=== PATIENT | female | born 1990 | race Caucasian/White ===

== ENCOUNTER → 2017-06-22 10:41 | Outpatient (CLI) | payer OTHER, MEDICAID, SELFPAY ==
[2017-06-22 12:28] LABS: Hematocrit 36.1 % (37-47); Hemoglobin 11.9 g/dl (12.0-15.0); Mean Corpuscular Hgb 28.5 pg (27.0-32.0); Mean Corpuscular Volume 86.4 fL (81-99); Mean Platelet Vol. 11.1 fl (6.2-12.0); Platelet Count 207 K/mm3 (150-450); RBC Distribution Width CV 13.1 % (11.6-14.6); RBC Distribution Width SD 40.3 fl (35.1-43.9); Red Blood Count 4.18 M/mm3 (4.2-5.4); White Blood Count 11.1 K/mm3 (4.4-11.0)
[2017-06-22 12:34] LABS: Scan Indicated on CBC? Y/N NO
[2017-06-22 13:22] LABS: Glucose Challenge Gest 1H 50g 117 mg/dL (70-140)
== END ==
PROVIDERS: Visit Provider Obstetrics & Gynecology
DX: Z34.82 Encounter for supervision of other normal pregnancy, second trimester (principal)
CPT/HCPCS: 36415; 82950; 85027

== ENCOUNTER → 2017-08-24 09:59 | Outpatient (CLI) | payer OTHER, MEDICAID, SELFPAY ==
[2017-08-24 11:34] LABS: Group B Strep DNA By PCR Negative (Negative); Internal Control PASS; Probe Check PASS; Specimen Processing Control PASS
== END ==
PROVIDERS: Visit Provider Obstetrics & Gynecology
DX: Z36.85 Encounter for antenatal screening for Streptococcus B (principal)
CPT/HCPCS: 87081; 87653

== ENCOUNTER 2017-09-14 04:50 | Inpatient (IN) | payer OTHER, MEDICAID, SELFPAY ==
[2017-09-14 05:46] VITALS: BMI 34.1
[2017-09-14 06:28] LABS: Hematocrit 36.9 % (37-47); Hemoglobin 11.7 g/dl (12.0-15.0); Mean Corp Hgb Conc 31.7 g/gl (32-36); Mean Corpuscular Hgb 25.8 pg (27.0-32.0); Mean Corpuscular Volume 81.5 fL (81-99); Mean Platelet Vol. 10.5 fl (6.2-12.0); Platelet Count 205 K/mm3 (150-450); RBC Distribution Width CV 15.2 % (11.6-14.6); RBC Distribution Width SD 44.2 fl (35.1-43.9); Red Blood Count 4.53 M/mm3 (4.2-5.4); White Blood Count 10.1 K/mm3 (4.4-11.0)
[2017-09-14] MEDS: Lactated Ringers 1,000 ML 50 ML IV ×2 (06:30)
[2017-09-14 06:36] LABS: Scan Indicated on CBC? Y/N NO
[2017-09-14] MEDS: Acetaminophen 325 MG Tablet PO (10:54)
[2017-09-14] MEDS: Oxytocin 30 units/NS 500 ml 30 UNITS/500 ML IV.SOLN 334 UNITS IV (12:23)
--- NOTE | 2017-09-14 12:44 | PCM.OB.VAG ---
Vaginal Delivery Maternal Presentation: Active Labor 39w3d ega in active labor Amniotic Membrane Rupture Type: Artificial Rupture of Membrane time: 0800 Amniotic Fluid Description: Clear Final TEMO: 09/18/17 Final TEMO Source: US <20 weeks Gestational age: 39 Weeks and 3 Days Date of Procedure: 09/14/17 Pre-Operative Diagnosis: labor Post-Operative Diagnosis: same Surgery/ Procedure Performed: Spontaneous Vaginal Delivery Anesthesiologist: Deshaun Munoz Type of Anesthesia: Epidural Description of Procedure: Progressed to 7 cm then small amount of pitocin augmentation given. The progressed to FD then pushed for short time to deliver a live male without complication. Delayed cord clamping was employed. The nose and mouth was suctioned. The cord was clamped and cut. There was an active cry within the first minute of life. Apgars were 9/9. The placenta delivered spontaneously intact with a centrally located 3VC. The upper vagina and cervix were intact. Small first degree peruurethral tears were repaired with 3-0 vicryl suture. A small posterior vaginal first degree tear was repaired with 2-0 vicryl. The uterus contracted well. Presentation: Vertex Placental Delivery Description: Spontaneous Placenta Disposition: [facility] Percentage of Placenta Abruption: 0 Cord Vessel Description: 3 Vessels Cord Entanglement: None Drain: Marina to straight drain Estimated Blood Loss: 300cc Infant A gender: Male (1 minute): 9 (5 minute): 9 Episiotomy Description: None Laceration: Perineal Extension/lac, Vaginal Extension/lac, 1st degree Medications given after delivery: IV Pitocin Complications: None
--- NOTE | 2017-09-14 12:49 | OP.PCM_ITS ---
Vaginal Delivery Maternal Presentation: Active Labor 39w3d ega in active labor Amniotic Membrane Rupture Type: Artificial Rupture of Membrane time: 0800 Amniotic Fluid Description: Clear Final TEMO: 09/18/17 Final TEMO Source: US <20 weeks Gestational age: 39 Weeks and 3 Days Date of Procedure: 09/14/17 Pre-Operative Diagnosis: labor Post-Operative Diagnosis: same Surgery/ Procedure Performed: Spontaneous Vaginal Delivery Anesthesiologist: Deshaun Munoz Type of Anesthesia: Epidural Description of Procedure: Progressed to 7 cm then small amount of pitocin augmentation given. The progressed to FD then pushed for short time to deliver a live male without complication. Delayed cord clamping was employed. The nose and mouth was suctioned. The cord was clamped and cut. There was an active cry within the first minute of life. Apgars were 9/9. The placenta delivered spontaneously intact with a centrally located 3VC. The upper vagina and cervix were intact. Small first degree peruurethral tears were repaired with 3-0 vicryl suture. A small posterior vaginal first degree tear was repaired with 2- 0 vicryl. The uterus contracted well. Presentation: Vertex Placental Delivery Description: Spontaneous Placenta Disposition: [facility] Percentage of Placenta Abruption: 0 Cord Vessel Description: 3 Vessels Cord Entanglement: None Drain: Marina to straight drain Estimated Blood Loss: 300cc A gender: Male (1 minute): 9 (5 minute): 9 Episiotomy Description: None Laceration: Perineal Extension/lac, Vaginal Extension/lac, 1st degree Medications given after delivery: IV Pitocin Complications: None
--- NOTE | 2017-09-14 12:51 | DCINST_ITS ---
Discharge Diet: No Restrictions Discharge Activity: Return to Normal Activity, May Drive, May Shower Return to work on:: 11/13/17 May shower in (days): 0 May resume sexual activity in: 4-6 weeks Call your doctor if your incision/area has: Sudden Increased Bleeding, Increased Pain/ Swelling, Foul Smelling Discharge Call your doctor if you observe: Fever of 101 or Higher, Inability to urinate, Inability to have a bowel movement, Using more than one pad per hour, Shortness of breath, Chest pain, Calf discomfort, Uncontrolled pain Cleanse incision/area with: Soap & Water Additional Instructions: If you experience any of the following, contact your healthcare provider. * Bleeding that soaks a pad every hour for 2 hours * Fever 100.4 or higher * Unrelieved incision or abdominal pain * Swelling, redness, discharge or bleeding from your incision or episiotomy site * Your incision begins to separate * Problems urinating (including inability to urinate or burning while urinating) . * Visual changes * Severe headache * Flu-like symptoms * Pain or redness in one of both of your breasts * Pain, warmth, tenderness or swelling in your legs, especially the calf area * Frequent nausea and vomiting * Symptoms of depression or anxiety If you experience any of the following, call 911 or go to the nearest Emergency Room. * Chest pain * Problems breathing * Seizure activity * Partial or complete paralysis of a body part, slurred speech, weakness or drooping of the face, or a sudden inability to walk or hold your balance Allergies/Adverse Reactions: Allergies No Known Allergies Allergy (Verified 09/14/17 05:47) Medications to take at Discharge Ibuprofen [Motrin] 800 mg PO TID PRN PRN #30 tab 09/14/17 Pnv No.100/Iron/FA/Dha/Epa [Theranatal One Softgel] 1 each PO DAILY PRN PRN 07/30 The following prescriptions were given: Ibuprofen [Motrin] 800 mg PO TID PRN PRN #30 tab PRN Reason: pain or cramping Please Follow Up With: Rachell Pittman MD When: 6 weeks Proposed Discharge Date: 09/16/17
[2017-09-14] MEDS: Oxytocin 30 units/NS 500 ml 30 UNITS/500 ML IV.SOLN 167 UNITS IV (12:54)
[2017-09-14 14:10] VITALS: BP 126/83; PULSE 101; RESP 18; TEMP 36.4; O2SAT 98
[2017-09-14 16:30] VITALS: BP 134/73; PULSE 96; RESP 18; TEMP 36.4
[2017-09-14] MEDS: Ibuprofen 600 MG Tablet PO (19:17)
[2017-09-14 20:10] VITALS: BP 145/79; PULSE 90; RESP 18; TEMP 36.3
[2017-09-14 23:53] VITALS: BP 135/75; PULSE 89; RESP 17; TEMP 36.4
[2017-09-15 03:25] VITALS: BP 134/82; PULSE 89; RESP 18; TEMP 36.6
[2017-09-15 07:06] LABS: Hemoglobin 10.6 g/dl (12.0-15.0); Mean Corp Hgb Conc 32.1 g/gl (32-36); Mean Corpuscular Hgb 26.7 pg (27.0-32.0); Mean Corpuscular Volume 83.1 fL (81-99); Mean Platelet Vol. 10.8 fl (6.2-12.0); Platelet Count 182 K/mm3 (150-450); RBC Distribution Width CV 15.1 % (11.6-14.6); RBC Distribution Width SD 45.1 fl (35.1-43.9); Red Blood Count 3.97 M/mm3 (4.2-5.4); White Blood Count 10.4 K/mm3 (4.4-11.0)
[2017-09-15 07:15] LABS: Scan Indicated on CBC? Y/N NO
--- NOTE | 2017-09-15 08:22 | PCM.PN.OB ---
Subjective: No specific complaints. Bleeding light. Breast feeding. Objective: Afeb VSS - Physical Exam General: Alert, Oriented x3, Cooperative, No apparent distress Lungs: Clear to auscultation, Normal air movement Cardiovascular: Regular rate, Regular Rhythm Abdomen: Soft, Non Tender, Non-Distended, - - Fundus firm nontender Skin: No rashes Neurological: Neuro grossly intact Psych/Mental Status: Normal Affect Comment: Lochia light Vital Signs Temp Pulse Resp BP Pulse Ox 97.8 F 89 18 134/82 H 98 09/15/17 03:25 09/15/17 03:25 09/15/17 03:25 09/15/17 03:25 09/14/17 14:10 Oxygen Delivery Method Room Air Weight: 217 lb 13.067 oz Body Mass Index (BMI) 34.1 Intake and Output for Last 24 Hours 09/13/17 09/14/17 09/15/17 23:59 23:59 23:59 Intake Total 3626 / 3626 Output Total 2100 / 2100 Balance 1526 / 1526 Laboratory Tests Past 24 Hrs 09/15/17 06:55 WBC 10.4 RBC 3.97 L Hgb 10.6 L Hct 33.0 L MCV 83.1 MCH 26.7 L MCHC 32.1 RDW 15.1 H RDW Differential 45.1 H Plt Count 182 MPV 10.8 Medical Necessity - Tobacco Use Smoking Status: Current some day smoker Assessment/Plan Doing well on PP day#1. Cleared for discharge if she desires and baby cleared. Home going instructions and warnings given.
--- NOTE | 2017-09-15 08:24 | PCM.DC.SUM ---
Discharge Date and Diagnosis Date of Admission: 09/14/17 Date of Discharge: 09/15/17 - Primary Discharge Diagnosis S/P Hospital Course and Treatment Consultations 09/14/17 05:47 Consult: Anesthesia Routine Comment: Reason For Exam: LABOR Operations: None Procedures: - - , epidural Summary of Care Provided: The patient is a 27 year old F [admitted in labor, progressed to FD then pushed for a short time to deliver a live without complication. Post course unremarkable. Discharged home on PP day#1.] Discharge Diet: No Restrictions Discharge Activity: Return to Normal Activity, May Drive, May Shower Return to work on:: 11/13/17 May shower in (days): 0 May resume sexual activity in: 4-6 weeks Call your doctor if your incision/area has: Sudden Increased Bleeding, Increased Pain/ Swelling, Foul Smelling Discharge Call your doctor if you observe: Fever of 101 or Higher, Inability to urinate, Inability to have a bowel movement, Using more than one pad per hour, Shortness of breath, Chest pain, Calf discomfort, Uncontrolled pain Cleanse incision/area with: Soap & Water Home Medications: Medications to take at Discharge Ibuprofen [Motrin] 800 mg PO TID PRN PRN #30 tab 09/14/17 Pnv No.100/Iron/FA/Dha/Epa [Theranatal One Softgel] 1 each PO DAILY PRN PRN 09/14/17 Following Prescrptions Were Given to Patient: Ibuprofen [Motrin] 800 mg PO TID PRN PRN #30 tab PRN Reason: pain or cramping Please Follow Up With: Rachell Pittman MD When: 6 weeks Disposition: Home Minutes spent on discharge:: 15 Patient Condition:: Good Medical Necessity - Tobacco Use Smoking Status: Current some day smoker Meaningful Use Info Meaningful Use Diagnoses (Choose all that apply): None applicable
[2017-09-15 09:00] VITALS: BP 124/75; PULSE 96; RESP 18; TEMP 36.6
[2017-09-15] MEDS: Ibuprofen 600 MG Tablet PO ×2 (09:45→17:09)
[2017-09-15 12:00] VITALS: BP 137/74; PULSE 92; RESP 18; TEMP 36.6
[2017-09-15 16:30] VITALS: BP 130/85; PULSE 92; RESP 18; TEMP 36.8
== END 2017-09-15 20:15 | disposition home or self-care (01) | DRG 775 ==
PROVIDERS: Admitting Provider Obstetrics & Gynecology; Visit Provider Obstetrics & Gynecology
DX: O99.334 Smoking (tobacco) complicating childbirth (principal); Z37.0 Single live birth; F17.200 Nicotine dependence, unspecified, uncomplicated; Z3A.39 39 weeks gestation of pregnancy; O70.0 First degree perineal laceration during delivery
CPT/HCPCS: 59025; 59050; 85027; 86850; 86900; 99218; J7120; G0378

== ENCOUNTER → 2017-11-06 10:54 | Outpatient (CLI) | payer OTHER, MEDICAID, SELFPAY ==
[2017-11-06 14:04] LABS: Progesterone Level 0.57 ng/mL (See Comment)
[2017-11-06 14:05] LABS: hCG Titer Quant., Serum < 1 mIU/mL (<9 non-preg)
== END ==
PROVIDERS: Visit Provider Obstetrics & Gynecology
DX: Z30.430 Encounter for insertion of intrauterine contraceptive device (principal)
CPT/HCPCS: 36415; 84144; 84702

== ENCOUNTER → 2017-11-08 11:58 | Outpatient (CLI) | payer OTHER, MEDICAID, SELFPAY ==
[2017-11-08 19:43] LABS: Chlamydia Trachomatis by PCR Negative (Negative); Neisserai gonorrhoeae by PCR Negative (Negative)
[2017-11-08 19:44] LABS: Probe Check PASS; Sample Adequacy Control PASS; Specimen Processing Control PASS
== END ==
PROVIDERS: Visit Provider Obstetrics & Gynecology
DX: Z11.3 Encounter for screening for infections with a predominantly sexual mode of transmission (principal)
CPT/HCPCS: 87491; 87591

== ENCOUNTER → 2019-04-30 13:52 | Outpatient (CLI) | payer OTHER, SELFPAY | PROVIDERS: Visit Provider Obstetrics & Gynecology | DX: Z12.4 Encounter for screening for malignant neoplasm of cervix (principal) ==

== ENCOUNTER → 2019-12-27 | Outpatient (CLI) | payer OTHER, SELFPAY ==
[2019-12-31 20:56] LABS: HPV APTIMA, High Risk Negative (Negative)
== END | disposition home or self-care (01) ==
LOC: LABSPEC 14:06
PROVIDERS: Referring Provider Obstetrics & Gynecology; Visit Provider Obstetrics & Gynecology
DX: R87.810 Cervical high risk human papillomavirus (HPV) DNA test positive (principal); R87.610 Atypical squamous cells of undetermined significance on cytologic smear of cervix (ASC-US)
CPT/HCPCS: 87624; 88175; G0145

== ENCOUNTER → 2021-04-15 13:32 | Outpatient (CLI) | payer OTHER, SELFPAY ==
[2021-04-15 15:43] LABS: Hematocrit 38.8 % (37-47); Hemoglobin 13.2 g/dL (12.0-15.0); Mean Corpuscular Hgb 28.9 pg (27.0-32.0); Mean Corpuscular Volume 85.1 fL (81-99); Mean Platelet Vol. 10.5 fl (6.2-12.0); Platelet Count 267 K/mm3 (150-450); RBC Distribution Width CV 12.8 % (11.6-14.6); RBC Distribution Width SD 39.1 fl (35.1-43.9); Red Blood Count 4.56 M/mm3 (4.2-5.4); White Blood Count 8.4 K/mm3 (4.4-11.0)
[2021-04-15 16:20] LABS: Estradiol < 11.0 pg/mL; Follicle Stimulating Hormone < 0.2 mIU/mL; Luteinizing Hormone < 0.2 mIU/mL; T4 Free Direct 1.09 ng/dL (0.76-1.46); Thyroid Stim Hormone (TSH) 1.01 uIU/mL (0.358-3.74)
== END ==
PROVIDERS: Visit Provider Obstetrics & Gynecology
DX: N93.9 Abnormal uterine and vaginal bleeding, unspecified (principal)
CPT/HCPCS: 36415; 82670; 83001; 83002; 84146; 84439; 84443; 85027

== ENCOUNTER → 2022-06-22 | Outpatient (CLI) | payer OTHER, SELFPAY ==
[2022-07-01 19:15] LABS: HPV APTIMA, High Risk Negative (Negative)
== END | disposition home or self-care (01) ==
LOC: LABSPEC 15:23
PROVIDERS: Visit Provider Student in an Organized Health Care Education/Training Program
DX: Z12.4 Encounter for screening for malignant neoplasm of cervix (principal)
CPT/HCPCS: 87624; 88175; G0145